=== PATIENT | male | born 1965 | race Asian ===

== ENCOUNTER 2020-04-19 17:39 | Inpatient (IN) | payer OTHER, SELFPAY ==
[~2020-04-19 17:39] MED LIST: Iopamidol-370 76% 500 ML 1 ML ONE
[2020-04-19 18:35] LABS: #Monocytes 0.4 thou/uL (0.11-0.59); #Neutrophils 3.4 thou/uL (1.40-6.50); %Basophils 0.3 % (0.0-1.0); %Eosinophils 0.1 % (0.0-10.0); %Lymphocytes 34.1 % (21.0-51.0); %Monocytes 6.2 % (0.0-10.0); %Neutrophils 59.2 % (42.0-75.0); Hemoglobin 14.5 g/dL (14.0-18.0); Mean Corpuscular HGB CONC 33.9 g/dL (32.0-36.0); Mean Corpuscular Hemoglobin 28.6 pg (27.0-31.0); Mean Corpuscular Volume 84.3 fL (78.0-98.0); Mean Platelet Volume 8.2 fL (7.4-10.4); Platelet Count 137 thou/uL (130-400); RBC Distribution Width 11.6 % (11.5-14.5); Red Blood Cell (RBC) Count 5.06 mill/uL (4.70-6.10); White Blood Cell (WBC) Count 5.7 thou/uL (4.8-10.8)
[2020-04-19] MEDS ORDERED: cefTRIAXone\\ROCEPHIN 2 GM VIAL ONE (18:36)
[2020-04-19] MEDS ORDERED: Acetaminophen 500 MG TAB ONE (18:36)
[2020-04-19] MEDS ORDERED: Albuterol 200 PUFF (6.7GM INHALER) ONE (18:36)
[2020-04-19] MEDS ORDERED: Dexamethasone 10 MG/ML VIAL ONE (18:36)
[2020-04-19 18:55] LABS: ALT (SGPT) 73 U/L (8-55); AST (SGOT) 95 U/L (5-34); Albumin 3.8 g/dL (3.5-5.0); Alkaline Phosphatase 75 U/L (40-110); Anion Gap 17 mmol/L (10-20); BUN (Urea Nitrogen) 12 mg/dL (8.4-25.7); Bilirubin, Total 0.4 mg/dL (0.2-1.2); CK (CPK) 301 U/L (30-200); Calc. Creatinine Clearance 0 mL/min (70-130); Carbon Dioxide 18 mmol/L (22-29); Chloride 100 mmol/L (98-107); Estimated GFR-MDRD 90; Globulin 3.6 g/dL (2.4-3.5); Glucose 319 mg/dL (70-105); Potassium 4.2 mmol/L (3.5-5.1); Protein, Total 7.4 g/dL (6.0-8.3); Sodium 131 mmol/L (136-145)
--- NOTE | 2020-04-19 18:55 | RAD ---
XR Chest 1 View Portable HISTORY: Dyspnea. Positive COVID 19 test COMPARISON: None FINDINGS: The heart size is normal. There are mild patchy infiltrates with lower zone dominance. No p neumothoraces or large effusions are seen.
--- NOTE | 2020-04-19 19:34 | CT ---
CT PULMONARY ANGIOGRAM WITH IV CONTRAST AND 3-D POSTPROCESSING: HISTORY:Dyspnea. Positive COVID19 test FINDINGS: There is good contrast opacification of the pulmonary arterial vasculature without filling defects to suggest pulmonary embolism. The thoracic aorta is well opacified without aneurysm or dissection. There is a 9 mm right paratrache al lymph node and a 1 cm subcarinal lymph node. No pleural or pericardial effusions are seen. There are patchy multifocal peripheral groundglass opacities bilaterally. No pneumothoraces are seen. There are degenerative changes in the spine. Upper abdominal tomograms demonstrate fatty infiltration of the liver. IMPRESSION: 1. No CT evidence of pulmonary embolism. 2. Findings are consistent with COVID19 pneumonia. 3. Fatty liver.
[2020-04-19] MEDS ORDERED: Azithromycin 500 MG VIAL ONE (19:36)
[2020-04-19] MEDS ORDERED: Sodium Chloride 0.9% 1,000 ML IV SCH (21:45)
[2020-04-19] MEDS ORDERED: Acetaminophen 325 MG TAB PO PRN (21:45)
[2020-04-19] MEDS ORDERED: Ondansetron ODT 4 MG TAB SL PRN (21:45)
[2020-04-19] MEDS ORDERED: Ondansetron PF 4 MG/2 ML Vial IVP PRN (21:45)
[2020-04-19] MEDS ORDERED: Guaifenesin DM 100-10/5 ML UDCUP PO PRN (22:02)
[2020-04-19] MEDS ORDERED: Albuterol 200 PUFF (6.7GM INHALER) INH PRN (22:36)
[2020-04-19 22:49] VITALS: BMI 27.8
[2020-04-19] MEDS ORDERED: Benzonatate 100 MG CAP PO PRN (23:04)
--- NOTE | 2020-04-19 23:56 | HP ---
PRIMARY CARE PHYSICIAN: None, city call. CHIEF COMPLAINT: Difficulty breathing. HISTORY OF PRESENT ILLNESS: The patient is a 54-year-old male with past medical history significant for hypertension and positive COVID test earlier today. He presented to the ER for shortness of breath, cough, fever, body aches and chills for the past 3 days. The patient also is positive for diarrhea. He was seen in Urgent Care earlier today where he showed bilateral multifocal infiltrates on his chest x-ray and he was sent to the ER for further evaluation. The patient denies any reported ill contacts. However, he did recently travel to [place] for his sister's and returned home on April 08. He does state that a nephew that went with him also became positive for COVID and was admitted to the hospital this week. His temperature max at home was 101 to 102, but Tylenol would help it quickly come down. The shortness of breath just started 2 days ago and today he felt he could not handle it any longer. The patient does have a history of high blood pressure. He does not currently have a primary care physician; however, he has his medications brought over from [place]. He states his blood pressure is well regulated on it normally running 120s/80s. Today in the ER, they completed a chest x-ray, chest and thorax CTA and lab work. He was administered: 1. Azithromycin 500 mg IV. 2. Ventolin 2 puffs inhaled. 3. Normal saline 1 L. 4. Dexamethasone 10 mg IV. 5. Tylenol 1 g. 6. Ceftriaxone 2 g. PAST MEDICAL HISTORY: Hypertension. PAST SURGICAL HISTORY: None. ALLERGIES: NONE. MEDICATIONS: Benicar 20 mg. SOCIAL HISTORY: The patient lives at home. He denies any alcohol, drug, or smoking history. FAMILY HISTORY: Negative for anything contributory. REVIEW OF SYSTEMS: All other review of systems negative unless noted in HPI. PHYSICAL EXAMINATION: VITAL SIGNS: Blood pressure 120/74, pulse 116, respiratory rate 34, temp 101.4, O2 saturation 100% on 2 L. Upon arrival to the ER, he was 89% on room air. GENERAL: The patient tachycardic, appears pain free, appears comfortable at this time. HEAD: Atraumatic, normocephalic. EYES: Extraocular muscles intact. PERRLA. RESPIRATORY: Breath sounds diminished throughout. Chest expansion is equal. No rhonchi, no rales. CARDIOVASCULAR: Regular rate and rhythm. No murmurs, no rubs, no gallops. ABDOMEN: Nontender. No guarding. No distention. Bowel sounds normal. EXTREMITIES: No edema. No cyanosis. IMAGIN. Chest and thorax CTA showed no CT evidence of pulmonary embolism. Findings were consistent with COVID-19 pneumonia and demonstrated a fatty liver. 2. Chest x-ray showed mild patchy infiltrates with lower zone dominance. No pneumothoraces or large effusions were seen. LABORATORY DATA: White blood cells 5.7, hemoglobin 14.5, hematocrit 42.6. Sodium 131, potassium 4.2, carbon dioxide 18, anion gap 17, BUN 12, creatinine 0.89, GFR 90, glucose 319, lactic acid 1.9. Creatine kinase 301. Troponin negative. IMPRESSION AND PLAN: 1. COVID-19 pneumonia. We will continue patient on IV antibiotic and start vitamin C, vitamin D3 and zinc. We will also continue patient on dexamethasone at this time. The patient to remain on oxygen until he is unable to maintain his saturation levels and feel comfortable off the oxygen on room air. The patient may have albuterol inhalant as needed for shortness of breath or wheezing. P.r.n. antitussives will be made available for the patient along with antipyretics and analgesics. 2. Hyponatremia. Continue patient on his IV fluids at this time and recheck labs in the morning. 3. Hypertension. Restart patient on his home medications. Vital signs q.4 hours. Blood pressure stable at this time. 4. The patient with deep venous thrombosis prophylaxis on sequential compression devices. He wishes to be a full code. 5. His surrogate decision maker is his son, Adolfo. This patient has been discussed with Dr. Starkey Job ID: [id number] [facility]
[2020-04-20] MEDS: Sodium Chloride 0.9% 1,000 ML IV SCH ×2 (05:44→09:25)
[2020-04-20 06:57] LABS: #Lymphocytes 1.2 thou/uL (1.20-3.40); #Monocytes 0.2 thou/uL (0.11-0.59); #Neutrophils 2.2 thou/uL (1.40-6.50); %Basophils 0.1 % (0.0-1.0); %Eosinophils 0.4 % (0.0-10.0); %Lymphocytes 33.3 % (21.0-51.0); %Monocytes 4.1 % (0.0-10.0); %Neutrophils 62.2 % (42.0-75.0); Hemoglobin 13.1 g/dL (14.0-18.0); Mean Corpuscular Hemoglobin 28.4 pg (27.0-31.0); Mean Corpuscular Volume 83.5 fL (78.0-98.0); Platelet Count 171 thou/uL (130-400); RBC Distribution Width 11.8 % (11.5-14.5); Red Blood Cell (RBC) Count 4.62 mill/uL (4.70-6.10); White Blood Cell (WBC) Count 3.6 thou/uL (4.8-10.8)
[2020-04-20 07:14] LABS: Anion Gap 18 mmol/L (10-20); BUN (Urea Nitrogen) 14 mg/dL (8.4-25.7); Calc. Creatinine Clearance 104 mL/min (70-130); Calcium 8.4 mg/dL (7.8-10.44); Carbon Dioxide 19 mmol/L (22-29); Chloride 108 mmol/L (98-107); Estimated GFR-MDRD 78; Glucose 373 mg/dL (70-105); Potassium 4.2 mmol/L (3.5-5.1); Sodium 141 mmol/L (136-145)
[2020-04-20] MEDS ORDERED: FLU VACC QS2020-21(6MOS UP)/PF 60 MCG/0.5 ML SYRINGE IM ONE (09:00)
[2020-04-20] MEDS: Ascorbic Acid 500 mg Chewable Tablet PO SCH (09:24)
[2020-04-20] MEDS: Cholecalciferol 1,000 UNITS (25 MCG) TAB PO SCH (09:24)
[2020-04-20] MEDS: Zinc Sulfate 220 MG CAP PO SCH (09:24)
[2020-04-20] MEDS: Losartan 25 MG TAB PO SCH (09:24)
[2020-04-20] MEDS: Dexamethasone 4 mg/ml Vial SLOW IVP SCH (09:25)
--- NOTE | 2020-04-20 10:09 | RAD ---
PORTABLE CHEST 1 VIEW: DATE: 04/20/2020. TIME: 9:44 a.m. HISTORY: Increased O2 requirements, COVID positive. COMPARISON: Previous day. FINDINGS: The heart size is normal. Patchy bilateral infiltrates with lower zone dominance are again seen. No pneumothoraces or large effusions are identified. IMPRESSION: Stable exam. POS: [facility]ANDALL
[2020-04-20 16:19] LABS: ALT (SGPT) 71 U/L (8-55); AST (SGOT) 78 U/L (5-34); Albumin 3.5 g/dL (3.5-5.0); Alkaline Phosphatase 65 U/L (40-110); Bilirubin, Direct 0.2 mg/dL (0.1-0.3); Bilirubin, Total 0.3 mg/dL (0.2-1.2); Protein, Total 6.7 g/dL (6.0-8.3)
--- NOTE | 2020-04-20 18:06 | PDOC.HOSPP ---
- Subjective Encounter Date: 04/20/20 Encounter Time: 13:00 Subjective: F/u : COVID The patient feels his energy level has decreased today compared to yesterday. He still has a dry cough. He reports shortness of breath ambulating to the bathroom. He has to stop and take a break one or two times . He denies chest pain - Objective Vital Signs & Weight: Vital Signs (12 hours) Temp Pulse Resp BP Pulse Ox 04/20/20 16:00 98.6 F 99 18 117/77 95 04/20/20 12:00 99.2 F 99 18 123/81 97 04/20/20 08:00 99.2 F 97 18 129/65 92 L Weight Weight 188 lb 11.2 oz I&O: 04/19/20 04/20/20 04/21/20 06:59 06:59 06:59 Intake Total 120 Balance 120 Result Diagrams: 04/20/20 06:34 04/20/20 06:34 Hospitalist ROS - Review of Systems Constitutional: denies: fever, chills - Medication Medications: Active Medications Generic Name Dose Route Start Last Admin Trade Name Jaelyn PRN Reason Stop Dose Admin Ascorbic Acid 500 mg 04/20/20 09:00 04/20/20 09:24 Ascorbic Acid 500 Mg Chewable Tablet PO 500 mg DAILY CHUCKY Administration Cholecalciferol 1,000 units 04/20/20 09:00 04/20/20 09:24 Cholecalciferol 1,000 Units (25 Mcg) Tab PO 1,000 units DAILY CHUCKY Administration Dexamethasone 10 mg 04/20/20 09:00 04/20/20 09:25 Dexamethasone 4 Mg/Ml Vial SLOW IVP 10 mg DAILY CHUCKY Administration Sodium Chloride 1,000 mls @ 75 mls/hr 04/19/20 23:15 04/20/20 09:25 Normal Saline 0.9% IV 1,000 mls .[id number] CHUCKY Administration Losartan Potassium 50 mg 04/20/20 09:00 04/20/20 09:24 Losartan 25 Mg Tab PO 50 mg DAILY CHUCKY Administration Zinc Sulfate 220 mg 04/20/20 09:00 04/20/20 09:24 Zinc Sulfate 220 Mg Cap PO 220 mg DAILY CHUCKY Administration - Exam General Appearance: NAD, awake alert Eye: PERRL, anicteric sclera ENT: normocephalic atraumatic, no oropharyngeal lesions Neck: no JVD Heart: RRR, no murmur, no gallops, no rubs Respiratory: CTAB, no wheezes, no rales, no ronchi Gastrointestinal: soft, non-tender, non-distended, normal bowel sounds Extremities: no cyanosis, no clubbing, no edema Skin: normal turgor, no lesions, no rashes Neurological: cranial nerve grossly intact, normal sensation to touch, no focal deficits, no new deficit Hosp A/P - Plan Chest X ray: mild patchy infiltrates within lower zone dominance. cTA chest: no PE, fatty live, findings consistent with COVID pneumonia This is a 54 year old male who presented with fever, cough, shortness of breath and hypoxia admitted for further workup Acute hypoxic respiratory failure secondary to COVID pneumonia - he was 91% on 2L nasal cannula. He was started on ceftriaxone and azithrom ycin - discussed with Dr. Menjivar, will order remdesivir for the patient - continue dexamethasone Transaminitis - likely from fatty liver. Downtrending currently. No abdominal pain - will monitor LFTS with remdesivir Leukopenia - WBC 3.6, likely from COVID, will monitor Anemia - Hb 13.1, could be dilutional. Will discontinue IV fluids
[2020-04-20] MEDS ORDERED: REMDESIVIR (EUA) 200 MG in Sodium Chloride 0.9% 250 ML 210 ML IV SCH ×2 (20:00→22:00)
[2020-04-20] MEDS: cefTRIAXone\\ROCEPHIN 2 GM in Sodium Chloride 0.9% 100 ML IVPB SCH (20:18)
[2020-04-20] MEDS: Azithromycin 500 MG in Sodium Chloride 0.9% 250 ML 250 ML IVPB SCH (23:50)
[2020-04-21 06:33] LABS: Hemoglobin 12.5 g/dL (14.0-18.0); Mean Corpuscular HGB CONC 33.7 g/dL (32.0-36.0); Mean Corpuscular Hemoglobin 28.3 pg (27.0-31.0); Mean Corpuscular Volume 83.8 fL (78.0-98.0); Mean Platelet Volume 8.6 fL (7.4-10.4); Platelet Count 220 thou/uL (130-400); RBC Distribution Width 11.9 % (11.5-14.5); Red Blood Cell (RBC) Count 4.42 mill/uL (4.70-6.10); White Blood Cell (WBC) Count 8.5 thou/uL (4.8-10.8)
[2020-04-21 06:42] LABS: Anion Gap 19 mmol/L (10-20); BUN (Urea Nitrogen) 23 mg/dL (8.4-25.7); Calc. Creatinine Clearance 115 mL/min (70-130); Carbon Dioxide 19 mmol/L (22-29); Chloride 109 mmol/L (98-107); Estimated GFR-MDRD 87; Glucose 360 mg/dL (70-105); Potassium 4.3 mmol/L (3.5-5.1); Sodium 143 mmol/L (136-145)
[2020-04-21] MEDS: Cholecalciferol 1,000 UNITS (25 MCG) TAB PO SCH (07:44)
[2020-04-21] MEDS: Zinc Sulfate 220 MG CAP PO SCH (07:44)
[2020-04-21] MEDS: Losartan 25 MG TAB PO SCH ×2 (07:45→08:07)
[2020-04-21] MEDS: Ascorbic Acid 500 mg Chewable Tablet PO SCH (07:45)
[2020-04-21] MEDS: Dexamethasone 4 mg/ml Vial SLOW IVP SCH (07:46)
[2020-04-21 07:59] LABS: ALT (SGPT) 69 U/L (8-55); AST (SGOT) 55 U/L (5-34); Albumin 3.4 g/dL (3.5-5.0); Alkaline Phosphatase 67 U/L (40-110); Bilirubin, Direct 0.1 mg/dL (0.1-0.3); Bilirubin, Total 0.2 mg/dL (0.2-1.2); Protein, Total 6.4 g/dL (6.0-8.3)
[2020-04-21 08:55] LABS: Band 13 % (5-11); Lymphocytes 22 % (21-51); MDiff Complete? YES; Monocytes 4 % (0-10); Neutrophil 61 % (42-75); RBC Morphology Normal
[2020-04-21 11:24] LABS: Hemoglobin A1c 13.1 % (4.0-6.0)
[2020-04-21] MEDS ORDERED: Dextrose 5% in Water 1,000 ML IV PRN (17:15)
[2020-04-21] MEDS ORDERED: Dextrose 50% Abboject 50 ML SYRINGE IVP PRN (17:15)
--- NOTE | 2020-04-21 17:29 | PDOC.HOSPP ---
- Subjective Encounter Date: 04/21/20 Encounter Time: 07:00 Subjective: F/u ; COVID The patient reports improvement in his cough . His shortness of breath has improved. His oxygen was increased to 4L ,but per patient they were not able to get an accurate ear saturation on him this morning Hyperglycemia - the patient reports no history of diabetes previously. His A1C was 13. He has not had a recent diabetic eye exam Transaminitis - LFTs improving. Patient denies abdominal pain. He states he does not drink alcohol . He denies history of fatty liver in the past - Objective Vital Signs & Weight: Vital Signs (12 hours) Temp Pulse Resp BP Pulse Ox 04/21/20 11:15 98.4 F 96 15 112/52 L 91 L 04/21/20 08:00 98.2 F 80 16 101/64 92 L Weight Weight 188 lb 11.2 oz I&O: 04/20/20 04/21/20 04/22/20 06:59 06:59 06:59 Intake Total 360 Balance 360 Result Diagrams: 04/21/20 06:03 04/21/20 06:03 Additional Labs: Accuchecks 04/21/20 04/21/20 17:02 11:48 POC Glucose 370 H 466 H Hospitalist ROS - Review of Systems Constitutional: denies: fever, chills - Medication Medications: Active Medications Generic Name Dose Route Start Last Admin Trade Name Armondq PRN Reason Stop Dose Admin Ascorbic Acid 500 mg 04/20/20 09:00 04/21/20 07:45 Ascorbic Acid 500 Mg Chewable Tablet PO 500 mg DAILY CHUCKY Administration Cholecalciferol 1,000 units 04/20/20 09:00 04/21/20 07:44 Cholecalciferol 1,000 Units (25 Mcg) Tab PO 1,000 units DAILY CHUCKY Administration Azithromycin 500 mg/ Sodium 250 mls @ 250 mls/hr 04/20/20 21:00 04/20/20 23:50 Chloride IVPB 250 mls 2100 CHUCKY Administration Ceftriaxone Sodium 2 gm/ 100 mls @ 200 mls/hr 04/20/20 20:00 04/20/20 20:18 Sodium Chloride IVPB 100 mls 2000 CHUCKY Administration Losartan Potassium 50 mg 04/20/20 09:00 04/21/20 08:07 Losartan 25 Mg Tab PO Not Given DAILY CHUCKY Zinc Sulfate 220 mg 04/20/20 09:00 11/10/20 07:44 Zinc Sulfate 220 Mg Cap PO 220 mg DAILY CHUCKY Administration - Exam General Appearance: NAD, awake alert Eye: PERRL, anicteric sclera ENT: normocephalic atraumatic, no oropharyngeal lesions Neck: no JVD Heart: RRR, no murmur, no gallops, no rubs Respiratory - other findings: diminished breath sounds bilaterally Gastrointestinal: soft, non-tender, non-distended, normal bowel sounds Extremities: no cyanosis, no clubbing, no edema Skin: normal turgor, no lesions, no rashes Musculoskeletal: normal tone, normal strength, no muscle wasting Psychiatric: normal affect, normal behavior, A&O x 3 Hosp A/P - Plan Chest X ray: mild patchy infiltrates within lower zone dominance. cTA chest: no PE, fatty live, findings consistent with COVID pneumonia This is a 54 year old male who presented with fever, cough, shortness of breath and hypoxia admitted for further workup Acute hypoxic respiratory failure secondary to COVID pneumonia - he was 91% on 2L nasal cannula. He was started on ceftriaxone and azithromycin which we will continue - on remdesivir day 2/5 - reduce dexamethasone to 6 mg daily - wean oxygen saturation to 92% . Currently on 4L, not sure if this is accurate or not Transaminitis - likely from fatty liver. Downtrending currently. No abdominal pain -improving Leukopenia - WBC 3.6, likely from COVID, will monitor Anemia - Hb 13.1, could be dilutional. Will discontinue IV fluids Type II diabetes - A1C 13.1, new diagnosis - consult dietitician, started on sliding scale - decrease steroids to 6 mg iV daily - will start metformin
[2020-04-21] MEDS ORDERED: REMDESIVIR (EUA) 100 MG in Sodium Chloride 0.9% 250 ML 230 ML IV SCH (20:00)
[2020-04-21] MEDS: cefTRIAXone\\ROCEPHIN 2 GM in Sodium Chloride 0.9% 100 ML IVPB SCH (20:40)
[2020-04-21] MEDS: Benzonatate 100 MG CAP PO SCH (20:42)
[2020-04-21] MEDS ORDERED: metFORMIN 500 MG TAB PO SCH (21:00)
[2020-04-21] MEDS: REMDESIVIR (EUA) 100 MG in Sodium Chloride 0.9% 250 ML 230 ML IV SCH (22:27)
[2020-04-21] MEDS: Azithromycin 500 MG in Sodium Chloride 0.9% 250 ML 250 ML IVPB SCH ×2 (22:54→23:52)
[2020-04-22] MEDS: Insulin Regular 300 UNITS/3 ML VIAL SC PRN ×3 (06:05→17:41)
[2020-04-22 07:18] LABS: ALT (SGPT) 57 U/L (8-55); AST (SGOT) 34 U/L (5-34); Albumin 3.4 g/dL (3.5-5.0); Alkaline Phosphatase 68 U/L (40-110); Bilirubin, Direct 0.2 mg/dL (0.1-0.3); Bilirubin, Total 0.3 mg/dL (0.2-1.2); Protein, Total 6.5 g/dL (6.0-8.3)
[2020-04-22] MEDS: Losartan 25 MG TAB PO SCH (09:16)
[2020-04-22] MEDS: metFORMIN 500 MG TAB PO SCH ×2 (09:17→17:11)
[2020-04-22] MEDS: Benzonatate 100 MG CAP PO SCH ×3 (09:17→22:10)
[2020-04-22] MEDS: Cholecalciferol 1,000 UNITS (25 MCG) TAB PO SCH (09:17)
[2020-04-22] MEDS: Ascorbic Acid 500 mg Chewable Tablet PO SCH (09:17)
[2020-04-22] MEDS: Zinc Sulfate 220 MG CAP PO SCH (09:17)
[2020-04-22] MEDS: Dexamethasone 4 mg/ml Vial SLOW IVP SCH (09:18)
--- NOTE | 2020-04-22 16:01 | PDOC.HOSPP ---
- Subjective Encounter Date: 04/22/20 Encounter Time: 16:02 Subjective: F/u: COVID The patient reports shortness of breath when he walks around too much, but otherwise is doing okay. He has mild intermittent cough. He says when he lays down at night, he has trouble getting air in . He was seen by PT and desaturated to 88% while working with them Diabetes - patient was seen eating home-made daal and rice . Encouraged that rice, especially white rice should be limited and smaller portion sizes but the lentils are fine. He states he will start being more strict from now on - Objective Vital Signs & Weight: Vital Signs (12 hours) Temp Pulse Resp BP Pulse Ox 04/22/20 13:08 97.8 F 84 18 111/72 92 L 04/22/20 09:15 98.3 F 84 20 113/72 92 L 04/22/20 04:00 98.6 F 82 20 101/67 92 L Weight Weight 188 lb 11.2 oz I&O: 04/21/20 04/22/20 04/23/20 06:59 06:59 06:59 Intake Total 360 Balance 360 Result Diagrams: 04/21/20 06:03 04/21/20 06:03 Additional Labs: Accuchecks 04/22/20 04/22/20 04/21/20 13:10 05:58 20:09 POC Glucose 317 H 318 H 363 H 04/21/20 17:02 POC Glucose 370 H Hospitalist ROS - Review of Systems Constitutional: denies: fever, chills - Medication Medications: Active Medications Generic Name Dose Route Start Last Admin Trade Name Jaelyn PRN Reason Stop Dose Admin Ascorbic Acid 500 mg 04/20/20 09:00 04/22/20 09:17 Ascorbic Acid 500 Mg Chewable Tablet PO 500 mg DAILY CHUCKY Administration Benzonatate 100 mg 04/21/20 21:00 04/22/20 15:11 Benzonatate 100 Mg Cap PO 100 mg TID CHUCKY Administration Cholecalciferol 1,000 units 04/20/20 09:00 04/22/20 09:17 Cholecalciferol 1,000 Units (25 Mcg) Tab PO 1,000 units DAILY CHUCKY Administration Dexamethasone 6 mg 04/22/20 09:00 04/22/20 09:18 Dexamethasone 4 Mg/Ml Vial SLOW IVP 6 mg DAILY CHUCKY Administration Ceftriaxone Sodium 2 gm/ 100 mls @ 200 mls/hr 04/20/20 20:00 04/21/20 20:40 Sodium Chloride IVPB 100 mls 2000 CHUCKY Administration Remdesivir 100 mg/ Sodium 250 mls @ 250 mls/hr 04/21/20 22:00 04/21/20 22:27 Chloride IV 04/24/20 22:59 250 mls 2200 CHUCKY Administration Azithromycin 500 mg/ Sodium 250 mls @ 250 mls/hr 04/21/20 23:59 04/21/20 23:52 Chloride IVPB 250 mls 2359 CHUCKY Administration Insulin Human Regular 0 units 04/21/20 17:15 04/22/20 13:15 Insulin Regular 300 Units/3 Ml Vial SC 5 unit .MILD SLIDING PRN Administration MILD SLIDING SCALE Protocol Losartan Potassium 50 mg 04/20/20 09:00 04/22/20 09:16 Losartan 25 Mg Tab PO 50 mg DAILY CHUCKY Administration Metformin HCl 500 mg 04/22/20 08:00 04/22/20 09:17 Metformin 500 Mg Tab PO 500 mg BID-WM CHUCKY Administration Zinc Sulfate 220 mg 04/20/20 09:00 04/22/20 09:17 Zinc Sulfate 220 Mg Cap PO 220 mg DAILY CHUCKY Administration - Exam General Appearance: NAD, awake alert Eye: PERRL, anicteric sclera ENT: normocephalic atraumatic, no oropharyngeal lesions Neck: no JVD Heart: RRR, no murmur, no gallops, no rubs Respiratory: no wheezes, no rales, no ronchi Respiratory - other findings: diminished breath sounds Gastrointestinal: soft, non-tender, non-distended, normal bowel sounds Extremities: no cyanosis, no clubbing, no edema Hosp A/P - Plan Chest X ray: mild patchy infiltrates within lower zone dominance. cTA chest: no PE, fatty live, findings consistent with COVID pneumonia This is a 54 year old male who presented with fever, cough, shortness of breath and hypoxia admitted for further workup Acute hypoxic respiratory failure secondary to COVID pneumonia - he was 91% on 2L nasal cannula. He was started on ceftriaxone and azithromycin which we will continue - on remdesivir day 3/5 - continue dexamethasone to 6 mg daily. Will trial lasix 20 mg IV once to orthopnea. Also advised to try breathing treatment at night if he feels short of breath - wean oxygen saturation to 92% , currently on 2L Transaminitis -ALT 57, likely from fatty liver. Downtrending currently. No abdominal pain Leukopenia-resolved Anemia - Hb 12.5, will repeat tomorrow Type II diabetes - A1C 13.1, new diagnosis - consult dietitician, started on sliding scale -continue metformin - will start lantus 10 units tonight
[2020-04-22] MEDS ORDERED: Furosemide 20 MG/2 ML VIAL SLOW IVP SCH (16:15)
[2020-04-22] MEDS: cefTRIAXone\\ROCEPHIN 2 GM in Sodium Chloride 0.9% 100 ML IVPB SCH (20:59)
[2020-04-22] MEDS: REMDESIVIR (EUA) 100 MG in Sodium Chloride 0.9% 250 ML 230 ML IV SCH (22:11)
[2020-04-22] MEDS: Insulin Glargine 10 UNITS in Pre-Filled Syringe SC SCH (22:11)
[2020-04-22] MEDS: Azithromycin 500 MG in Sodium Chloride 0.9% 250 ML 250 ML IVPB SCH (23:47)
[2020-04-23] MEDS: Insulin Regular 300 UNITS/3 ML VIAL SC PRN ×2 (04:52→11:39)
[2020-04-23 06:36] LABS: Hemoglobin 13.4 g/dL (14.0-18.0); Mean Corpuscular HGB CONC 33.5 g/dL (32.0-36.0); Mean Corpuscular Hemoglobin 28.4 pg (27.0-31.0); Mean Corpuscular Volume 84.9 fL (78.0-98.0); Platelet Count 269 thou/uL (130-400); RBC Distribution Width 11.8 % (11.5-14.5); Red Blood Cell (RBC) Count 4.71 mill/uL (4.70-6.10); White Blood Cell (WBC) Count 7.8 thou/uL (4.8-10.8)
[2020-04-23 06:58] LABS: ALT (SGPT) 44 U/L (8-55); AST (SGOT) 27 U/L (5-34); Albumin 3.3 g/dL (3.5-5.0); Alkaline Phosphatase 72 U/L (40-110); Bilirubin, Direct 0.2 mg/dL (0.1-0.3); Bilirubin, Total 0.4 mg/dL (0.2-1.2); Protein, Total 6.4 g/dL (6.0-8.3)
[2020-04-23] MEDS: Cholecalciferol 1,000 UNITS (25 MCG) TAB PO SCH (08:00)
[2020-04-23] MEDS: Losartan 25 MG TAB PO SCH (08:00)
[2020-04-23] MEDS: Ascorbic Acid 500 mg Chewable Tablet PO SCH (08:01)
[2020-04-23] MEDS: Dexamethasone 4 mg/ml Vial SLOW IVP SCH (08:01)
[2020-04-23] MEDS: Benzonatate 100 MG CAP PO SCH ×3 (08:01→20:57)
[2020-04-23] MEDS: metFORMIN 500 MG TAB PO SCH ×2 (08:01→16:59)
[2020-04-23] MEDS: Zinc Sulfate 220 MG CAP PO SCH (08:01)
--- NOTE | 2020-04-23 13:14 | RAD ---
Exam: Chest one view HISTORY:Increased O2 requirements. COVID patient. Comparison: 04/20/2020 FINDINGS: Cardiac silhouette: Normal Aorta: Unremarkable Pulmonary vessels: Normal Costophrenic angles: Clear LUNGS: Stable multifocal interstitial and alveolar opacities. Pneumothorax: None Osseous abnormalities: None IMPRESSION: Stable multifocal COVID pneumonia
--- NOTE | 2020-04-23 15:32 | PDOC.HOSPP ---
- Subjective Encounter Date: 04/23/20 Encounter Time: 06:00 Subjective: f/U: covid The patient is feeling much better. He states his energy levels have significantly improved and he is noticing a difference. He has only a mild cough He no longer has shortness of breath while laying down. Per nursing, his oxygen sat was increased to 3L since it was 91% on the ear . - Objective Vital Signs & Weight: Vital Signs (12 hours) Temp Pulse Resp BP Pulse Ox 04/23/20 11:43 97.7 F 86 18 135/87 94 L 04/23/20 08:53 93 L 04/23/20 08:00 97.8 F 84 20 124/83 93 L Weight Weight 188 lb 11.2 oz I&O: 04/22/20 04/23/20 04/24/20 06:59 06:59 06:59 Intake Total 1462 Balance 1462 Result Diagrams: 04/23/20 06:09 04/21/20 06:03 Additional Labs: Accuchecks 04/23/20 04/23/20 04/22/20 11:26 04:48 22:20 POC Glucose 378 H 312 H 361 H 04/22/20 17:18 POC Glucose 337 H Hospitalist ROS - Review of Systems Constitutional: denies: fever, chills - Medication Medications: Active Medications Generic Name Dose Route Start Last Admin Trade Name Jaelyn PRN Reason Stop Dose Admin Ascorbic Acid 500 mg 04/20/20 09:00 04/23/20 08:01 Ascorbic Acid 500 Mg Chewable Tablet PO 500 mg DAILY CHUCKY Administration Benzonatate 100 mg 04/21/20 21:00 04/23/20 15:02 Benzonatate 100 Mg Cap PO 100 mg TID CHUCKY Administration Cholecalciferol 1,000 units 04/20/20 09:00 04/23/20 08:00 Cholecalciferol 1,000 Units (25 Mcg) Tab PO 1,000 units DAILY CHUCKY Administration Dexamethasone 6 mg 04/22/20 09:00 04/23/20 08:01 Dexamethasone 4 Mg/Ml Vial SLOW IVP 6 mg DAILY CHUCKY Administration Ceftriaxone Sodium 2 gm/ 100 mls @ 200 mls/hr 04/20/20 20:00 04/22/20 20:59 Sodium Chloride IVPB 100 mls 2000 CHUCKY Administration Remdesivir 100 mg/ Sodium 250 mls @ 250 mls/hr 04/21/20 22:00 04/22/20 22:11 Chloride IV 04/24/20 22:59 250 mls 2200 CHUCKY Administration Azithromycin 500 mg/ Sodium 250 mls @ 250 mls/hr 04/21/20 23:59 04/22/20 23:47 Chloride IVPB 250 mls 2359 CHUCKY Administration Insulin Glargine 10 units/ 0.1 mls @ 0 mls/hr 04/22/20 21:00 04/22/20 22:11 Miscellaneous Medication SC 0.1 mls HS CHUCKY Administration Insulin Human Regular 0 units 04/21/20 17:15 04/23/20 11:39 Insulin Regular 300 Units/3 Ml Vial SC 6 unit .MILD SLIDING PRN Administration MILD SLIDING SCALE Protocol Losartan Potassium 50 mg 04/20/20 09:00 04/23/20 08:00 Losartan 25 Mg Tab PO 50 mg DAILY CHUCKY Administration Metformin HCl 500 mg 04/22/20 08:00 04/23/20 08:01 Metformin 500 Mg Tab PO 500 mg BID-WM CHUCKY Administration Zinc Sulfate 220 mg 04/20/20 09:00 04/23/20 08:01 Zinc Sulfate 220 Mg Cap PO 220 mg DAILY CHUCKY Administration - Exam General Appearance: NAD, awake alert Eye: PERRL, anicteric sclera ENT: normocephalic atraumatic, no oropharyngeal lesions Neck: no JVD Heart: RRR, no murmur, no gallops, no rubs Respiratory: no wheezes, no rales, no ronchi Respiratory - other findings: diminished breath sounds at the bases Gastrointestinal: soft, non-tender, non-distended, normal bowel sounds Extremities: no cyanosis, no clubbing, no edema Skin: normal turgor, no lesions, no rashes Neurological: cranial nerve grossly intact, normal sensation to touch, no focal deficits, no new deficit Hosp A/P - Plan Chest X ray: mild patchy infiltrates within lower zone dominance. cTA chest: no PE, fatty live, findings consistent with COVID pneumonia Chest x ray 04/23: stable multifocal infiltrates This is a 54 year old male who presented with fever, cough, shortness of breath and hypoxia admitted for further workup Acute hypoxic respiratory failure secondary to COVID pneumonia - he was 91% on 2L nasal cannula. He was started on ceftriaxone and azithromycin which we will continue - on remdesivir day 4/5 - continue dexamethasone to 6 mg daily. S/p lasix 20 mg x 1 04/12 - repeat chest X ray due to increasing oxygen requirements is unchanged. Will trial convalescent plasma today - will do home oxygen evaluation and case management consult for home oxygen in anticipation that he may be discharged tomorrow Transaminitis -resolved, likely from fatty liver. Downtrending currently. No abdominal pain Leukopenia-resolved Anemia - Hb 13.4, stable Type II diabetes - A1C 13.1, new diagnosis - consult dietitician, started on sliding scale -continue metformin - lantus 10 units started 04/22. Blood sugars still > 300. Will increase insulin to moderate dose Dispo: possibly d/c tomorrow if weaned off oxygen
[2020-04-23] MEDS ORDERED: Dextrose 50% Abboject 50 ML SYRINGE SLOW IVP PRN (15:34)
[2020-04-23] MEDS ORDERED: Dextrose 5% in Water 1,000 ML IV PRN (15:34)
[2020-04-23] MEDS: HumaLOG 300 UNITS/3 ML VIAL SC PRN (16:57)
[2020-04-23] MEDS: cefTRIAXone\\ROCEPHIN 2 GM in Sodium Chloride 0.9% 100 ML IVPB SCH (19:12)
[2020-04-23] MEDS: Insulin Glargine 10 UNITS in Pre-Filled Syringe SC SCH (20:57)
[2020-04-23] MEDS: REMDESIVIR (EUA) 100 MG in Sodium Chloride 0.9% 250 ML 230 ML IV SCH (20:57)
[2020-04-23] MEDS: Azithromycin 500 MG in Sodium Chloride 0.9% 250 ML 250 ML IVPB SCH (23:44)
[2020-04-24] MEDS: HumaLOG 300 UNITS/3 ML VIAL SC PRN ×3 (05:11→17:22)
[2020-04-24 06:36] LABS: ALT (SGPT) 39 U/L (8-55); AST (SGOT) 25 U/L (5-34); Albumin 3.2 g/dL (3.5-5.0); Alkaline Phosphatase 73 U/L (40-110); Bilirubin, Direct 0.3 mg/dL (0.1-0.3); Bilirubin, Total 0.5 mg/dL (0.2-1.2); Protein, Total 6.4 g/dL (6.0-8.3)
[2020-04-24] MEDS: metFORMIN 500 MG TAB PO SCH ×2 (07:51→17:18)
[2020-04-24] MEDS: Benzonatate 100 MG CAP PO SCH ×3 (07:51→19:51)
[2020-04-24] MEDS: Ascorbic Acid 500 mg Chewable Tablet PO SCH (07:51)
[2020-04-24] MEDS: Losartan 25 MG TAB PO SCH (07:51)
[2020-04-24] MEDS: Zinc Sulfate 220 MG CAP PO SCH (07:52)
[2020-04-24] MEDS: Dexamethasone 4 mg/ml Vial SLOW IVP SCH (07:52)
[2020-04-24] MEDS: Cholecalciferol 1,000 UNITS (25 MCG) TAB PO SCH (07:52)
[2020-04-24] MEDS ORDERED: REMDESIVIR (EUA) 100 MG in Sodium Chloride 0.9% 250 ML 230 ML IV SCH (18:15)
--- NOTE | 2020-04-24 18:17 | PDOC.DS.DS ---
Provider - Provider Date of Admission: 04/19/20 20:00 Date of Discharge: 04/24/20 Admitting Provider: Muriel Starkey MD Primary Care Physician: NO PCP PROVIDER Course - Hospital Course Hospital Course: Brief HPI: 54-year-old male with a past medical history of hypertension who presented to the emergency room for fever, shortness of breath, cough, body ache and chills for the past 3 days. He also had diarrhea. He went to the emergency room where he was found to have multifocal infiltrates on chest x-ray. His Covid test was positive. He presented to the emergency room for further work- up. Upon arrival to the ER the patient had a fever of 102, heart rate of 116, respiratory rate of 34. Patient was given dexamethasone 10, ceftriaxone, azithromycin and admitted for further work-up. This is a 54 year old male who presented with fever, cough, shortness of breath and hypoxia admitted for further workup HOSPITAL COURSE: Sepsis with acute hypoxic respiratory failure secondary to COVID pneumonia: Patient received 5 days of ceftriaxone and azithromycin while in the hospital. He had a CT of his chest which showed no PE. The patient mostly remained on 2 L of oxygen while in the hospital. At times his oxygen saturations were inaccurate especially on his finger but were more accurate on his ear. Patient did receive 5 days of IV remdesivir while in the hospital. He stated that his energy levels have significantly improved and he only had a minimal cough. He reported no significant shortness of breath. He got one dose of lasix for some orthopnea which resolved. Home oxygen evaluation on the day of discharge showed that his room air sat was 89%. His O2 saturation improved to 91% with 4 L. He was set up with home oxygen to go home. He did receive a transfusion of convalescent plasma prior to discharge. The patient was advised to quarantine at home for an additional 14 days. Type II diabetes: the patient's blood sugars were over 300 in the hospital. Hemoglobin A1C was 13.1. He was started on a mild sliding scale with inadequate control of his blood sugars. He was increased to a moderate sliding scale. He was started on Metformin. He started on Lantus 10 units on 04/22. He will continue with dexamethasone for 5 more days. I anticipate his blood sugars will be uncontrolled until he comes off the dexamethasone. He should follow-up with his PCP with regards to his diabetes and consider repeat hemoglobin A1c in 3 months. Dietitian was consulted and the patient was given information about carbohydrate counting. Transaminitis: He did have mild elevation of his LFTs. CT of his chest showed fatty liver. He denies any abdominal pain. Leukopenia-the patient had a WBC of 3.6 which improved to 7.8 on 04/23. Anemia: Hb 13.4 on 04/24. Consider repeat CBC in a week . Pertinent Studies: Chest X ray 04/19: mild patchy infiltrates within lower zone dominance. CTA chest 04/19: no PE, fatty liver, findings consistent with COVID pneumonia Chest X ray 04/20: stable patchy infiltrates Chest x ray 04/23: stable multifocal infiltrates Resuscitation Status: 04/19/20 22:02 Resuscitation Status Routine Co-Sign Provider: Resuscitation Status: FULL: Full Resuscitation Discussed with: pt - Labs Lab Results: 04/23/20 06:09 04/21/20 06:03 Abnormal Lab Results - Last 48 hrs 04/23/20 06:09: Albumin 3.3 L 04/23/20 06:09: Hgb 13.4 L, Hct 40.0 L 04/24/20 05:56: Albumin 3.2 L Microbiology - Entire Visit 04/19/20 18:08 Venous blood - Right Hand Blood Culture - Final Presumptive Micrococcus sp. 04/19/20 18:08 Venous blood - Left Arm Blood Culture - Preliminary NO GROWTH AT 48 HOURS - Physical Exam Vitals: Vital Signs (12 hours) Temp Pulse Resp BP Pulse Ox 04/24/20 15:15 97.9 F 71 18 130/75 95 04/24/20 12:00 97.9 F 100 20 117/72 93 L 04/24/20 08:00 98.2 F 90 22 H 112/72 93 L Weight Weight 188 lb 11.2 oz Physical Exam: The patient was seen and examined on the day of discharge. Problem - Discharge Plan Assessment: Repeat chest Xray in 6 weeks for resolution of pneumonia. The patient was diagnosed with diabetes. Please check repeat hemoglobin A1C in 3 months and follow up in one week for adequate control of his blood sugars. He should get yearly eye and foot exam. He also has a fatty liver. Consider outpatient follow up. - Time spent with Patient (mins): 35 Plan - Discharge Medications Prescriptions: Cefdinir 300 mg PO Q12HR #4 capsule Azithromycin 250 mg PO DAILY #2 tablet Dexamethasone 4 mg PO DAILY #5 tablet Furosemide 20 mg PO DAILY PRN #5 tablet PRN Reason: Edema Blood-Glucose Meter [Gluco Navii Glucose Meter] 1 each MC ASDIR #1 kit metFORMIN [Glucophage] 500 mg PO BID-WM #60 tab Blood Sugar Diagnostic [Glucose Test Strip] 1 each MC ACHS #120 strip HumaLOG [HumaLOG Vial] 1 unit SC ACHS #120 vial Insulin Glargine [Lantus Vial] 10 units SC HS #30 vial Home Medications: Medication Instructions Recorded Confirmed Type Olmesartan Medoxomil [Benicar] 20 mg PO DAILY 04/19/20 04/19/20 History Azithromycin 250 mg PO DAILY #2 tablet 04/24/20 Rx Blood Sugar Diagnostic [Glucose 1 each MC ACHS #120 strip 04/24/20 Rx Test Strip] Blood-Glucose Meter [Gluco Navii 1 each ASDIR #1 kit 04/24/20 Rx Glucose Meter] Cefdinir 300 mg PO Q12HR #4 capsule 04/24/20 Rx Dexamethasone 4 mg PO DAILY #5 tablet 04/24/20 Rx Furosemide 20 mg PO DAILY PRN #5 tablet 04/24/20 Rx HumaLOG [HumaLOG Vial] 1 unit SC ACHS #120 vial 04/24/20 Rx Insulin Glargine [Lantus Vial] 10 units SC HS #30 vial 04/24/20 Rx metFORMIN [Glucophage] 500 mg PO BID-WM #60 tab 04/24/20 Rx Allergies: No Known Allergies Allergy (Verified 04/20/20 01:20) - Discharge Instructions Activity:: Activity as Tolerated Nourishment:: Diabetic Diet - Follow up Plan Referrals: PROVIDER,NO PCP [Primary Care Provider] - Disposition: HOME Quality - Care Measures CORE MEASURES:: N/A
--- NOTE | 2020-04-24 18:58 | PDOC.HOSPP ---
- Subjective Encounter Date: 04/24/20 Encounter Time: 18:57 Subjective: F/u: COVID Patient states he feels better. He wanted to go home this morning, His oxygen sat was 89% on room air at rest, 86% on exertion. He required 4L on exertion. Home oxygen was set up and delivered to the room . Convalescent plasma not given yesterday due to delay in getting COVID results faxed from [facility]. It was transfused at 6:00 pm - Objective Vital Signs & Weight: Vital Signs (12 hours) Temp Pulse Resp BP Pulse Ox 04/24/20 15:15 97.9 F 71 18 130/75 95 04/24/20 12:00 97.9 F 100 20 117/72 93 L 04/24/20 08:00 98.2 F 90 22 H 112/72 93 L Weight Weight 188 lb 11.2 oz I&O: 04/23/20 04/24/20 04/25/20 06:59 06:59 06:59 Intake Total 1462 240 Balance 1462 240 Result Diagrams: 04/23/20 06:09 04/21/20 06:03 Additional Labs: Accuchecks 04/24/20 04/24/20 04/23/20 11:59 05:15 19:42 POC Glucose 347 H 278 H 358 H Hospitalist ROS - Review of Systems Constitutional: denies: fever, chills - Medication Medications: Active Medications Generic Name Dose Route Start Last Admin Trade Name Jaelyn PRN Reason Stop Dose Admin Ascorbic Acid 500 mg 04/20/20 09:00 04/24/20 07:51 Ascorbic Acid 500 Mg Chewable Tablet PO 500 mg DAILY CHUCKY Administration Benzonatate 100 mg 04/21/20 21:00 04/24/20 14:58 Benzonatate 100 Mg Cap PO 100 mg TID CHUCKY Administration Cholecalciferol 1,000 units 04/20/20 09:00 04/24/20 07:52 Cholecalciferol 1,000 Units (25 Mcg) Tab PO 1,000 units DAILY CHUCKY Administration Dexamethasone 6 mg 04/22/20 09:00 04/24/20 07:52 Dexamethasone 4 Mg/Ml Vial SLOW IVP 6 mg DAILY CHUCKY Administration Ceftriaxone Sodium 2 gm/ 100 mls @ 200 mls/hr 04/20/20 20:00 04/23/20 19:12 Sodium Chloride IVPB 100 mls 2000 CHUCKY Administration Azithromycin 500 mg/ Sodium 250 mls @ 250 mls/hr 04/21/20 23:59 04/23/20 23:44 Chloride IVPB 250 mls 2359 CHUCKY Administration Insulin Glargine 10 units/ 0.1 mls @ 0 mls/hr 04/22/20 21:00 04/23/20 20:57 Miscellaneous Medication SC 0.1 mls HS CHUCKY Administration Insulin Human Lispro 0 units 04/23/20 15:34 04/24/20 17:22 Humalog 300 Units/3 Ml Vial SC 6 unit .MODERATE SLIDING SC PRN Administration Moderate Correctional Scale Losartan Potassium 50 mg 04/20/20 09:00 04/24/20 07:51 Losartan 25 Mg Tab PO 50 mg DAILY CHUCKY Administration Metformin HCl 500 mg 04/22/20 08:00 04/24/20 17:18 Metformin 500 Mg Tab PO 500 mg BID-WM CHUCKY Administration Zinc Sulfate 220 mg 04/20/20 09:00 04/24/20 07:52 Zinc Sulfate 220 Mg Cap PO 220 mg DAILY CHUCKY Administration - Exam General Appearance: NAD, awake alert Eye: PERRL, anicteric sclera ENT: normocephalic atraumatic, no oropharyngeal lesions Neck: no JVD Heart: RRR, no murmur, no gallops, no rubs Respiratory: CTAB, no wheezes, no rales, no ronchi Gastrointestinal: soft, non-tender, non-distended, normal bowel sounds, no palpable masses Extremities: no cyanosis, no clubbing, no edema Skin: normal turgor, no lesions, no rashes Neurological: cranial nerve grossly intact, normal sensation to touch, no weakness Hosp A/P - Plan Chest X ray: mild patchy infiltrates within lower zone dominance. cTA chest: no PE, fatty live, findings consistent with COVID pneumonia Chest x ray 04/23: stable multifocal infiltrates This is a 54 year old male who presented with fever, cough, shortness of breath and hypoxia admitted for further workup Acute hypoxic respiratory failure secondary to COVID pneumonia - he was 91% on 2L nasal cannula. He was started on ceftriaxone and azithromycin which we will continue - on remdesivir day 10/14 - continue dexamethasone 6 mg daily. S/p lasix 20 mg x 1 04/12 - repeat chest X ray due to increasing oxygen requirements is unchanged. Gave convalescent plasma today - home oxygen set up for 4L on exertion. Pt wants to wait another day Transaminitis -resolved, likely from fatty liver. Downtrending currently. No abdominal pain Leukopenia-resolved Anemia - Hb 13.4, stable Type II diabetes - A1C 13.1, new diagnosis - consult dietitician, started on sliding scale -continue metformin - lantus 10 units started 04/22. Blood sugars still > 300. On mod dose slidingf scale -increase lantus to 15 units qhs Dispo: consider dc on oxygen tomorrow
[2020-04-24] MEDS: cefTRIAXone\\ROCEPHIN 2 GM in Sodium Chloride 0.9% 100 ML IVPB SCH (19:51)
[2020-04-24] MEDS ORDERED: Insulin Glargine 15 UNITS in Pre-Filled Syringe SC SCH (21:00)
[2020-04-25] MEDS: Azithromycin 500 MG in Sodium Chloride 0.9% 250 ML 250 ML IVPB SCH (00:37)
[2020-04-25] MEDS: HumaLOG 300 UNITS/3 ML VIAL SC PRN ×2 (05:58→13:04)
[2020-04-25] MEDS: Cholecalciferol 1,000 UNITS (25 MCG) TAB PO SCH (09:13)
[2020-04-25] MEDS: Dexamethasone 4 mg/ml Vial SLOW IVP SCH (09:13)
[2020-04-25] MEDS: Ascorbic Acid 500 mg Chewable Tablet PO SCH (09:13)
[2020-04-25] MEDS: Losartan 25 MG TAB PO SCH (09:13)
[2020-04-25] MEDS: Benzonatate 100 MG CAP PO SCH ×2 (09:13→18:43)
[2020-04-25] MEDS: Zinc Sulfate 220 MG CAP PO SCH (09:13)
[2020-04-25] MEDS: metFORMIN 500 MG TAB PO SCH ×2 (09:13→18:43)
[2020-04-25 19:49] VITALS: BP 117/78; TEMP 97.4
--- NOTE | 2020-04-27 10:08 | DIS ---
DATE OF ADMISSION: 04/19/2020 DATE OF DISCHARGE: 04/24/2020 ADDENDUM: HOSPITAL COURSE: The patient's discharge was held for approximately 24 hours due to coordination for home oxygen equipment. The patient continued to require oxygen supplementation up to 3 L/minute by nasal cannula consistently due to COVID-19 pneumonia with associated hypoxic respiratory failure. The patient overall remained clinically stable for the remainder of the hospital course receiving azithromycin, Rocephin, and dexamethasone. The patient completed a 5-day course of remdesivir as well as received a dose of convalescent plasma. The patient overall clinically stable with stable vital signs at the time of discharge. I have examined the patient at the time of discharge and discussed followup instructions. The patient verbalizes understanding and agreement, ready for discharge on 04/25/2020. Please see dictated discharge summary of 04/24/2020 for full details, as well as medication reconciliation. Job ID: [id number]
== END 2020-04-24 20:10 | disposition home or self-care (01) | DRG 871 ==
LOC: ERS 17:39 → T4-A 20:00
PROVIDERS: ADMIT Internal Medicine; ATTEND Family Medicine
PROC: 8E0ZXY6 Isolation (ICD-10-PCS; 2020-04-19)
PROC: XW033E5 Introduction of Remdesivir Anti-infective into Peripheral Vein, Percutaneous Approach, New Technology Group 5 (ICD-10-PCS; principal; 2020-04-20)
PROC: XW13325 Transfusion of Convalescent Plasma (Nonautologous) into Peripheral Vein, Percutaneous Approach, New Technology Group 5 (ICD-10-PCS; 2020-04-24)
DX: A41.89 Other specified sepsis (principal); U07.1 COVID-19; J96.01 Acute respiratory failure with hypoxia; J12.89 Other viral pneumonia; E87.1 Hypo-osmolality and hyponatremia; I10 Essential (primary) hypertension; R74.01 Elevation of levels of liver transaminase levels; D64.9 Anemia, unspecified; D72.819 Decreased white blood cell count, unspecified; E11.65 Type 2 diabetes mellitus with hyperglycemia; K76.0 Fatty (change of) liver, not elsewhere classified; Z79.899 Other long term (current) drug therapy; R65.20 Severe sepsis without septic shock
CPT/HCPCS: 36415; 36416; 36430; 71045; 71275; 80048; 80053; 80076; 82550; 83036; 83605; 84484; 85025; 85027; 86850; 86900; 86901; 87040; 87149; 93005; 94760; 96365; 96367; 96375; J0456; J0696; J1100; J1815; J1940; J3490; J7050; P9017; Q9967